=== PATIENT | female | born 1980 | race African-American/Black ===

== ENCOUNTER 2016-08-23 12:18 | Emergency (ER) | payer SELFPAY ==
[2016-08-23] MEDS ORDERED: AMOXicillin 250 MG CAP ONE (13:21)
[2016-08-23] MEDS ORDERED: Oxymetazoline HCl 0.05% ( 15 ML ) ONE (13:21)
[2016-08-23] MEDS ORDERED: Naproxen 500 MG TAB ONE (13:21)
== END 2016-08-23 13:27 | disposition home or self-care (01) ==
LOC: MADERS 12:18
DX: J01.90 Acute sinusitis, unspecified (principal); F17.210 Nicotine dependence, cigarettes, uncomplicated
CPT/HCPCS: 99283

== ENCOUNTER 2021-02-16 11:11 | Emergency (ER) | payer SELFPAY ==
[2021-02-16 23:49] LABS: SARS-CoV-2 PCR by NAA Not Detected (NotDetected)
== END 2021-02-16 12:07 | disposition home or self-care (01) ==
LOC: MADERS 11:11
DX: J44.1 Chronic obstructive pulmonary disease with (acute) exacerbation (principal); Z20.822 Contact with and (suspected) exposure to COVID-19; F17.210 Nicotine dependence, cigarettes, uncomplicated; Z71.6 Tobacco abuse counseling
CPT/HCPCS: 99406; U0003; U0005